=== PATIENT | male | born 1945 | race Caucasian/White ===

== ENCOUNTER 2017-10-10 07:42 | Emergency (ER) | payer MEDICARE, OTHER ==
[2017-10-10 08:02] VITALS: BP 151/80
--- NOTE | 2017-10-10 08:03 | EDM.PDOC ---
ED HPI GENERAL MEDICAL PROBLEM - General Chief Complaint: Bite:Animal, Insect Stated Complaint: INSECT STING Time Seen by Provider: 10/10/17 07:56 Source of Information: Reports: Patient History Limitations: Reports: No Limitations - History of Present Illness INITIAL COMMENTS - FREE TEXT/NARRATIVE: Patient comes in with complaints of swelling to his left hand/wrist after being stung by a wasp 2 days ago. During history taking he also states he poked his hand with a tool that he can't remember. He does have an open wound. He denies all other symptoms. No difficulty breathing or throat closing. Duration: Getting Worse Location: Reports: Upper Extremity, Right - Related Data Allergies Allergy/AdvReac Type Severity Reaction Status Date / Time clindamycin Allergy Rash Verified 10/10/17 08:05 NSAIDS (Non-Steroidal Allergy Facial Verified 10/10/17 08:05 Anti-Inflamma Swelling potassium clavulanate AdvReac Nausea and Verified 10/10/17 08:05 [From Augmentin] Vomiting seasonal Allergy Other Uncoded 02/10/16 20:48 Home Meds: Home Meds Esomeprazole [NexIUM] 40 mg PO DAILY 03/18/13 [History] Lisinopril [Prinivil] 20 mg PO DAILY 03/18/13 [History] ALPRAZolam [Xanax] 1 - 2 tab PO TID PRN 02/28/15 [History] Azelastine/Fluticasone [Dymista Nasal [place]] 2 spray NASBOTH BID PRN 02/28/15 [ History] Celecoxib [CeleBREX] 1 tab PO DAILY PRN 02/28/15 [History] Pantoprazole [Protonix] 1 tab PO BID 02/28/15 [History] Polyvinyl Alcohol/Povidone [Artificial Tears Drops] 1 drop EYEBOTH ASDIRECTED PRN 02/28/15 [History] Pravastatin [Pravachol] 20 mg PO DAILY 02/28/15 [History] Sucralfate [Carafate] 1 tab PO QID PRN 02/28/15 [History] Triamcinolone Acetonide [Kenalog 0.1% Oint] 1 applic TOP BID 02/28/15 [History] Vardenafil HCl [Levitra] 10 mg PO DAILY PRN 02/28/15 [History] traMADol HCl [Ultram] 1 tab PO Q6H PRN 02/28/15 [History] Past Medical History HEENT History: Reports: Sinusitis, Other (See Below) Other HEENT History: throat pain Cardiovascular History: Reports: High Cholesterol, Hypertension Respiratory History: Reports: None Gastrointestinal History: Reports: GERD, Other (See Below) Other Gastrointestinal History: abdominal pain, dyspepsia Genitourinary History: Reports: Other (See Below) Other Genitourinary History: ED Musculoskeletal History: Reports: Arthritis Other Musculoskeletal History: DJD, Shoulder Pain Neurological History: Reports: None Psychiatric History: Reports: Anxiety Oncologic (Cancer) History: Reports: Basal Cell Carcinoma, Prostate Dermatologic History: Reports: Melanoma, Other (See Below) Other Dermatologic History: basal cell ca - Past Surgical History Musculoskeletal Surgical History: Reports: Arthroscopic Procedure, Carpal Tunnel , Shoulder Surgery ED ROS ALLERGIC REACTION - Review of Systems Review Of Systems: See Below Constitutional: Reports: No Symptoms HEENT: Reports: No Symptoms Respiratory: Reports: No Symptoms Cardiovascular: Reports: No Symptoms Endocrine: Reports: No Symptoms GI/Abdominal: Reports: No Symptoms : Reports: No Symptoms Musculoskeletal: Reports: Hand Pain Skin: Reports: Wound Neurological: Reports: No Symptoms Psychiatric: Reports: No Symptoms Hematologic/Lymphatic: Reports: No Symptoms Immunologic: Reports: No Symptoms ED EXAM GENERAL NO PERIP PULSE - Physical Exam Exam: See Below Exam Limited By: No Limitations General Appearance: Alert, WD/WN, No Apparent Distress Respiratory/Chest: No Respiratory Distress, Lungs Clear, Normal Breath Sounds, No Accessory Muscle Use, Chest Non-Tender Cardiovascular: Normal Peripheral Pulses, Regular Rate, Rhythm, No Edema, No Gallop, No JVD, No Murmur, No Rub Skin Exam: Warm, Dry, Normal Color, No Rash, Wound/Incision (puncture wound to the proximal thumb near radial artery. ) Lymphatic: No Adenopathy Course - Re-Assessments/Exams Free Text/Narrative Re-Assessment/Exam: 10/10/17 08:58 x-ray negative for foreign body. swelling is most likely from the sting. Advised to go to the clinic however if the swelling and redness does not improve. Departure - Departure Time of Disposition: 08:55 Disposition: Home, Self-Care 01 Condition: Good Clinical Impression: Bee sting reaction - Discharge Information *PRESCRIPTION DRUG MONITORING PROGRAM REVIEWED*: Not Applicable *COPY OF PRESCRIPTION DRUG MONITORING REPORT IN PATIENT LUL: Not Applicable Instructions: Bee, Wasp, or Hornet Sting, Adult Forms: ED Department Discharge Additional Instructions: Take 25-50 mg of benadryl up to 4 times per day for the next several days. Stay well hydrated. Your hand did not have any foreign bodies seen on x-ray. If you do not get better over the next several days, follow up with your primary doctor for further management. Please call the hospital if you have any further questions or concerns. - Problem List & Annotations (1) Bee sting reaction SNOMED Code(s): 342555304 Code(s): T63.441A - TOXIC EFFECT OF VENOM OF BEES, ACCIDENTAL, INIT Status : Acute Priority: Low Current Visit: Yes Qualifiers: Encounter type: initial encounter Injury intent: accidental or unintentional Qualified Code(s): T63.441A - Toxic effect of venom of bees, accidental (unintentional), initial encounter - Problem List Review Problem List Initiated/Reviewed/Updated: Yes - Assessment/Plan Assessment:: bee sting Plan: Take 25-50 mg of benadryl up to 4 times per day for the next several days. Stay well hydrated. Your hand did not have any foreign bodies seen on x-ray. If you do not get better over the next several days, follow up with your primary doctor for further management. Please call the hospital if you have any further questions or concerns.
[2017-10-10] MEDS ORDERED: diphenhydrAMINE 25 MG Cap PO ONE (08:49)
[2017-10-10] MEDS ORDERED: predniSONE 20 MG Tab PO ONE (08:50)
== END 2017-10-10 09:02 | disposition home or self-care (01) ==
LOC: VM.ED 07:42
DX: T63.441A Toxic effect of venom of bees, accidental (unintentional), initial encounter (principal); S61.039A Puncture wound without foreign body of unspecified thumb without damage to nail, initial encounter; M79.89 Other specified soft tissue disorders; I10 Essential (primary) hypertension; E78.00 Pure hypercholesterolemia, unspecified; K21.9 Gastro-esophageal reflux disease without esophagitis; Z88.1 Allergy status to other antibiotic agents; Z79.899 Other long term (current) drug therapy; W26.8XXA Contact with other sharp object(s), not elsewhere classified, initial encounter
CPT/HCPCS: 73120; 99283; A9270

== ENCOUNTER 2019-07-11 14:59 | Emergency (ER) | payer MEDICARE, OTHER ==
[2019-07-11] MEDS ORDERED: Sodium Chloride 0.9% 10 ML Syringe FLUSH PRN (15:13)
[2019-07-11] MEDS: Aspirin 81 MG Tab.Chew PO ONE ×2 (15:23→15:25)
--- NOTE | 2019-07-11 15:23 | EDM.PDOC ---
ED HPI GENERAL MEDICAL PROBLEM - General Stated Complaint: SOB, CHEST PAIN Time Seen by Provider: 07/11/19 14:59 Source of Information: Reports: Patient History Limitations: Reports: No Limitations - History of Present Illness INITIAL COMMENTS - FREE TEXT/NARRATIVE: Pt. presents to ER with complaints of chest heaviness and shortness of breath. Pt. states that he has been experiencing these symptoms for approx. 1 month. He denies any radiation into the jaw, arms, neck or back. Denies any cough. No chest congestion. No fever or chills. No nausea, vomiting, or diarrhea. Pt. has a history of hypertension and is currently takinglisinopril 20mg once daily. He states that he has had issues with anxiety in the past and feels that possibly it may be related to that. He had a cardiolyte in 2014 which was normal. EKG in 2017 was within normal limits as well. Location: Reports: Chest, Generalized Mid-Sternal Chest Pain Score (Numeric/FACES): 5 - Related Data Allergies Allergy/AdvReac Type Severity Reaction Status Date / Time clindamycin Allergy Rash Verified 07/11/19 15:57 NSAIDS (Non-Steroidal Allergy Facial Verified 07/11/19 15:57 Anti-Inflamma Swelling potassium clavulanate AdvReac Nausea and Verified 07/11/19 15:57 [From Augmentin] Vomiting seasonal Allergy Other Uncoded 02/10/16 20:48 Home Meds: Home Meds Esomeprazole [NexIUM] 40 mg PO DAILY 03/18/13 [History] lisinopriL [Prinivil] 20 mg PO DAILY 03/18/13 [History] ALPRAZolam [Xanax] 1 - 2 tab PO DAILY PRN 02/28/15 [History] Azelastine/Fluticasone [Dymista Nasal [place]] 2 spray NASBOTH DAILY PRN 02/28/15 [History] Triamcinolone Acetonide [Kenalog 0.1% Oint] 1 applic TOP BID 02/28/15 [History] traMADol HCl [Ultram] 1 tab PO Q6H PRN 02/28/15 [History] Budesonide [Pulmicort] 0.5 mg [place] DAILY 07/11/19 [History] Celecoxib [CeleBREX] 200 mg PO DAILY 07/11/19 [History] Clobetasol [Clobetasol Propionate 0.05%] 1 gm TOP BID 07/11/19 [History] Ezetimibe [Zetia] 10 mg PO DAILY 07/11/19 [History] Fluocinonide [Lidex 0.05% Top Soln] 5 ml TOP BID PRN 07/11/19 [History] Hydrocortisone [Hydrocortisone 2.5% Crm] 1 dose TP BID 07/11/19 [History] Sildenafil [Viagra] 50 mg PO BEDTIME PRN 07/11/19 [History] fluocinolone acetonide oiL [Dermotic] 4 drop EARLF BID PRN 07/11/19 [History] predniSONE [Prednisone] 1 mg PO DAILY 07/11/19 [History] Past Medical History HEENT History: Reports: Sinusitis, Other (See Below) Other HEENT History: throat pain Cardiovascular History: Reports: High Cholesterol, Hypertension Respiratory History: Reports: None Gastrointestinal History: Reports: GERD, Other (See Below) Other Gastrointestinal History: abdominal pain, dyspepsia Genitourinary History: Reports: Other (See Below) Other Genitourinary History: ED Musculoskeletal History: Reports: Arthritis Other Musculoskeletal History: DJD, Shoulder Pain Neurological History: Reports: None Psychiatric History: Reports: Anxiety Oncologic (Cancer) History: Reports: Basal Cell Carcinoma, Prostate Dermatologic History: Reports: Melanoma, Other (See Below) Other Dermatologic History: basal cell ca - Past Surgical History Musculoskeletal Surgical History: Reports: Arthroscopic Procedure, Carpal Tunnel , Shoulder Surgery ED ROS GENERAL - Review of Systems Review Of Systems: See Below Constitutional: Reports: No Symptoms HEENT: Reports: No Symptoms Respiratory: Reports: Shortness of Breath Cardiovascular: Reports: Chest Pain, Blood Pressure Problem Endocrine: Reports: No Symptoms GI/Abdominal: Reports: No Symptoms : Reports: No Symptoms Musculoskeletal: Reports: No Symptoms Skin: Reports: No Symptoms Neurological: Reports: No Symptoms Psychiatric: Reports: No Symptoms Hematologic/Lymphatic: Reports: No Symptoms Immunologic: Reports: No Symptoms ED EXAM, GENERAL - Physical Exam Exam: See Below Exam Limited By: No Limitations General Appearance: Alert, WD/WN, No Apparent Distress Nose: Normal Inspection, Normal Mucosa, No Blood Throat/Mouth: Normal Inspection, Normal Lips, Normal Teeth, Normal Gums, Normal Oropharynx, Normal Voice, No Airway Compromise Head: Atraumatic, Normocephalic Neck: Normal Inspection, Supple, Non-Tender, Full Range of Motion Respiratory/Chest: No Respiratory Distress, Lungs Clear, Normal Breath Sounds, No Accessory Muscle Use, Chest Non-Tender Cardiovascular: Normal Peripheral Pulses, Regular Rate, Rhythm, No Edema, No Gallop, No JVD, No Murmur, No Rub GI/Abdominal: Normal Bowel Sounds, Soft, Non-Tender, No Organomegaly, No Distention, No Mass, Pelvis Stable (Male) Exam: Deferred Rectal (Males) Exam: Deferred Back Exam: Normal Inspection, Full Range of Motion Extremities: Normal Inspection, Normal Range of Motion, Non-Tender, No Pedal Edema, Normal Capillary Refill Neurological: Alert, Oriented, CN II-XII Intact, Normal Cognition, Normal Gait, Normal Reflexes, No Motor/Sensory Deficits Psychiatric: Normal Affect, Normal Mood Skin Exam: Warm, Dry, Intact, Normal Color, No Rash Lymphatic: No Adenopathy EKG INTERPRETATION Rhythm: NSR [place]: Normal P-Wave: Present QRS: Normal ST-T: Normal QT: Normal Course - Vital Signs Last Recorded V/S: Last Vital Signs Temp 37.4 C 07/11/19 15:05 Pulse 75 07/11/19 16:30 Resp 16 07/11/19 16:30 BP 154/90 H 07/11/19 16:30 Pulse Ox 95 07/11/19 16:30 - Orders/Labs/Meds Orders: Active Orders 24 hr Category Date Time Status EKG Documentation Completion [RC] STAT Care 07/11/19 15:14 Active Nitroglycerin [Nitrostat] Med 07/11/19 15:34 Active 0.4 mg SL Q5M PRN Sodium Chloride 0.9% [Saline Flush] Med 07/11/19 15:13 Active 10 ml FLUSH ASDIRECTED PRN Blood Culture x2 Reflex Set [OM.PC] Stat Oth 07/11/19 15:14 Ordered Peripheral IV Insertion Adult [OM.PC] Routine Oth 07/11/19 15:14 Ordered Medication Orders Nitroglycerin (Nitrostat) 0.4 mg SL Q5M PRN PRN Reason: Chest Pain Stop: 07/12/19 15:34 Last Admin: 07/11/19 15:25 Dose: 0.4 mg Sodium Chloride (Saline Flush) 10 ml FLUSH ASDIRECTED PRN PRN Reason: Keep Vein Open Labs: Laboratory Tests 07/11/19 07/11/19 07/11/19 Range/Units 15:17 15:17 15:17 WBC 8.1 (4.0-10.0) x10^3/uL RBC 5.02 (4.5-6.0) x10^6/uL Hgb 15.5 (14.0-18.0) g/dL Hct 43.6 (40.0-52.0) % MCV 86.9 (78.0-93.0) fL MCH 30.9 (26.0-32.0) pg MCHC 35.6 (32.0-36.0) g/dL RDW Coeff of Michelle 13.2 (10.0-15.0) % Plt Count 176 (130-400) x10^3/uL Neut % (Auto) 73.9 (50.0-80.0) % Lymph % (Auto) 19.0 L (25.0-50.0) % [place] % (Auto) 6.0 (2.0-11.0) % Eos % (Auto) 0.7 (0.0-4.0) % Baso % (Auto) 0.4 (0.2-1.2) % PT 10.7 (10.0-12.8) SEC INR 0.9 L (2.0-3.5) D-Dimer, Quantitative (<=0.58) mg/LFEU Sodium 143 (136-145) mmol/L Potassium 3.9 (3.5-5.1) mmol/L Chloride 106 (98-107) mmol/L Carbon Dioxide 22 (21-32) mmol/L Anion Gap 18.9 (10-20) mmol/L BUN 14 (7-18) mg/dL Creatinine 1.3 (0.70-1.30) mg/dL Est Cr Clr Drug Dosing TNP Estimated GFR (MDRD) 54 Glucose 127 H (74-106) mg/dL Calcium 8.7 (8.5-10.1) mg/dL Corrected Calcium 8.62 (8.5-10.1) mg/dL Magnesium 1.8 (1.8-2.4) mg/dL Total Bilirubin 0.9 (0.2-1.0) mg/dL AST 25 (15-37) U/L ALT 28 (16-63) U/L Alkaline Phosphatase 61 (46-116) U/L Troponin I < 0.017 (<=0.056) ng/mL C-Reactive Protein < 0.2 (<=0.9) mg/dL NT-Pro-B Natriuret Pep 60 (<=125) pg/mL Total Protein 7.1 (6.4-8.2) g/dL Albumin 4.1 (3.4-5.0) g/dL Globulin 3.0 Albumin/Globulin Ratio 1.37 TSH, Ultra Sensitive 0.874 (0.358-3.74) uIU/mL Urine Color (YELLOW) Urine Appearance (CLEAR) Urine pH (5.0-8.0) Ur Specific [place] Urine Protein (NEGATIVE) mg/dL Urine Glucose (UA) (NEGATIVE) mg/dL Urine Ketones (NEGATIVE) mg/dL Urine Occult Blood (NEGATIVE) Urine Nitrite (NEGATIVE) Urine Bilirubin (NEGATIVE) Urine Urobilinogen (0.2) EU/dL Ur Leukocyte Esterase (NEGATIVE) Urine RBC (NOT SEEN) /HPF Urine WBC (NOT SEEN) /HPF Ur Squamous Epith Cells (NEGATIVE) /HPF Urine Bacteria (NEGATIVE) /HPF Urine Mucus (NEGATIVE) /LPF 07/11/19 07/11/19 Range/Units 15:17 15:43 WBC (4.0-10.0) x10^3/uL RBC (4.5-6.0) x10^6/uL Hgb (14.0-18.0) g/dL Hct (40.0-52.0) % MCV (78.0-93.0) fL MCH (26.0-32.0) pg MCHC (32.0-36.0) g/dL RDW Coeff of Michelle (10.0-15.0) % Plt Count (130-400) x10^3/uL Neut % (Auto) (50.0-80.0) % Lymph % (Auto) (25.0-50.0) % [place] % (Auto) (2.0-11.0) % Eos % (Auto) (0.0-4.0) % Baso % (Auto) (0.2-1.2) % PT (10.0-12.8) SEC INR (2.0-3.5) D-Dimer, Quantitative 0.67 H (<=0.58) mg/LFEU Sodium (136-145) mmol/L Potassium (3.5-5.1) mmol/L Chloride (98-107) mmol/L Carbon Dioxide (21-32) mmol/L Anion Gap (10-20) mmol/L BUN (7-18) mg/dL Creatinine (0.70-1.30) mg/dL Est Cr Clr Drug Dosing Estimated GFR (MDRD) Glucose (74-106) mg/dL Calcium (8.5-10.1) mg/dL Corrected Calcium (8.5-10.1) mg/dL Magnesium (1.8-2.4) mg/dL Total Bilirubin (0.2-1.0) mg/dL AST (15-37) U/L ALT (16-63) U/L Alkaline Phosphatase (46-116) U/L Troponin I (<=0.056) ng/mL C-Reactive Protein (<=0.9) mg/dL NT-Pro-B Natriuret Pep (<=125) pg/mL Total Protein (6.4-8.2) g/dL Albumin (3.4-5.0) g/dL Globulin Albumin/Globulin Ratio TSH, Ultra Sensitive (0.358-3.74) uIU/mL Urine Color Yellow (YELLOW) Urine Appearance Slightly cloudy H (CLEAR) Urine pH 5.0 (5.0-8.0) Ur Specific [place] >=1.030 Urine Protein Negative (NEGATIVE) mg/dL Urine Glucose (UA) Negative (NEGATIVE) mg/dL Urine Ketones 15 H (NEGATIVE) mg/dL Urine Occult Blood Trace-lysed H (NEGATIVE) Urine Nitrite Negative (NEGATIVE) Urine Bilirubin Negative (NEGATIVE) Urine Urobilinogen 0.2 (0.2) EU/dL Ur Leukocyte Esterase Negative (NEGATIVE) Urine RBC 0-5 (NOT SEEN) /HPF Urine WBC Not seen (NOT SEEN) /HPF Ur Squamous Epith Cells Rare (NEGATIVE) /HPF Urine Bacteria Rare (NEGATIVE) /HPF Urine Mucus Few H (NEGATIVE) /LPF Meds: Medications Generic Name Dose Route Start Last Admin Trade Name Freq PRN Reason Stop Dose Admin Nitroglycerin 0.4 mg 07/11/19 15:34 07/11/19 15:25 Nitrostat SL 07/12/19 15:34 0.4 mg Q5M PRN Administration Chest Pain Sodium Chloride 10 ml 07/11/19 15:13 Saline Flush FLUSH ASDIRECTED PRN Keep Vein Open Discontinued Medications Generic Name Dose Route Start Last Admin Trade Name Chelsey PRN Reason Stop Dose Admin Aspirin 324 mg 07/11/19 15:17 07/11/19 15:25 Aspirin PO 07/11/19 15:18 Not Given ONETIME ONE Iopamidol 100 ml 07/11/19 16:25 07/11/19 16:40 Isovue-300 (61%) IVPUSH 07/11/19 16:26 100 ml ONETIME ONE Administration Lorazepam 1 mg 07/11/19 15:38 07/11/19 15:45 Ativan IVPUSH 07/11/19 15:39 1 mg STAT ONE Administration Lorazepam 1 packet 07/11/19 17:36 Take Home: Lorazepam 0.5 Mg, 2 Tab Pack PO 07/11/19 17:37 ONETIME ONE - Radiology Interpretation Free Text/Narrative:: chest x-ray is negative CTA of chest negative for PE, no obvious edema, infiltrate or other pathology other than some thickening of the bronchial wall. Departure - Departure Time of Disposition: 17:44 Disposition: Home, Self-Care 01 Clinical Impression: Atypical chest pain - Discharge Information Instructions: Generalized Anxiety Disorder, Adult, Nonspecific Chest Pain, Adult, [id number], Lorazepam tablets Referrals: Miguelito Tan MD [Primary Care Provider] - Forms: ED Department Discharge Additional Instructions: Ativan 0.5mg 1 tab 3 times daily as needed for anxiety Follow-up with Dr. Tan next week for follow-up and to set up a stress test. Check your BP as directed Return to ER if worsening discomfort. Sepsis Event Note - Focused Exam Vital Signs: Vital Signs Temp Pulse Resp BP BP Pulse Ox 07/11/19 16:30 75 16 154/90 H 95 07/11/19 15:29 109 H 16 143/82 H 96 07/11/19 15:25 159/95 H 07/11/19 15:15 94 16 152/98 H 94 L 07/11/19 15:05 37.4 C 92 18 177/100 H 95 Date Exam was Performed: 07/11/19 Time Exam was Performed: 17:42 - Problem List Review Problem List Initiated/Reviewed/Updated: Yes - My Orders Last 24 Hours: My Active Orders 07/11/19 15:13 Sodium Chloride 0.9% [Saline Flush] 10 ml FLUSH ASDIRECTED PRN 07/11/19 15:14 EKG Documentation Completion [RC] STAT Blood Culture x2 Reflex Set [OM.PC] Stat Peripheral IV Insertion Adult [OM.PC] Routine 07/11/19 15:34 Nitroglycerin [Nitrostat] 0.4 mg SL Q5M PRN - Assessment/Plan Last 24 Hours: My Active Orders 07/11/19 15:13 Sodium Chloride 0.9% [Saline Flush] 10 ml FLUSH ASDIRECTED PRN 07/11/19 15:14 EKG Documentation Completion [RC] STAT Blood Culture x2 Reflex Set [OM.PC] Stat Peripheral IV Insertion Adult [OM.PC] Routine 07/11/19 15:34 Nitroglycerin [Nitrostat] 0.4 mg SL Q5M PRN Plan: Chest pressure resolved with ativan. Pt. will be discharged home. I would like him to follow-up with his PCP regarding his symptoms. He should have a stress test sometime in the near future. I did start him on a small dose of ativan as needed for anxiety. All questions were answered.
[2019-07-11] MEDS ORDERED: Nitroglycerin 0.4 MG Tab.SL SL PRN (15:34)
[2019-07-11] MEDS ORDERED: LORazepam 2 MG/ML SDV IVPUSH ONE (15:38)
--- NOTE | 2019-07-11 15:41 | CR ---
[id number] RAD/RAD Chest PA or AP 1V EXAM: FRONTAL CHEST INDICATION: Chest pain and shortness of breath. COMPARISON: June 28, 2014. DISCUSSION: Stable mild elevation of the right hemidiaphragm. The lungs are clear. The heart is normal in size. IMPRESSION: 1. Negative exam. Timmy Giles MD 07/11/19 [id number] Thank you for allowing us to participate in the care of your patient.
[2019-07-11 15:56] LABS: CHLORIDE,CL 106 mmol/L (98-107); SODIUM,NA 143 mmol/L (136-145)
[2019-07-11 16:00] LABS: ANION GAP 18.9 mmol/L (10-20)
[2019-07-11] MEDS ORDERED: Iopamidol 612 MG/ML 100 ML Bottle IVPUSH ONE (16:25)
--- NOTE | 2019-07-11 17:21 | CT ---
[id number] CT/CTA Chest EXAM: CT ANGIOGRAM CHEST INDICATION: Shortness of breath and elevated d-dimer. COMPARISON: Chest radiograph same date. DISCUSSION: The pulmonary arteries are normal in appearance with no emboli identified. Mild bronchial wall thickening is compatible with underlying bronchitis. Mild linear scarring or subsegmental atelectasis in the right lower lobe. No acute infiltrates. No pleural or pericardial effusion. Normal heart size. 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 The osseous structures are unremarkable. IMPRESSION: 1. Negative for pulmonary embolism. 2. Mild diffuse bronchial wall thickening is compatible with bronchitis. Timmy Giles MD 07/11/19 0962 Thank you for allowing us to participate in the care of your patient.
[2019-07-11] MEDS ORDERED: Take Home: LORazepam 0.5 MG Tab, 2 Tab Pack PO ONE (17:36)
[2019-07-11 17:43] VITALS: BP 130/75; PULSE 72
== END 2019-07-11 17:50 | disposition home or self-care (01) ==
LOC: VM.ED 14:59
DX: R07.89 Other chest pain (principal); E78.00 Pure hypercholesterolemia, unspecified; I10 Essential (primary) hypertension; K21.9 Gastro-esophageal reflux disease without esophagitis; M19.90 Unspecified osteoarthritis, unspecified site; F41.9 Anxiety disorder, unspecified; Z88.1 Allergy status to other antibiotic agents; Z91.018 Allergy to other foods; Z79.899 Other long term (current) drug therapy
CPT/HCPCS: 71045; 71275; 80053; 81001; 83735; 83880; 84443; 84484; 85025; 85379; 85610; 86140; 93005; 93010; 96374; 99284-GF; 99285-25; A9270-GY; J2060; Q9967

== ENCOUNTER 2020-03-07 08:21 | Day surgery (SDC) | payer MEDICARE, OTHER ==
[~2020-03-07 08:21] MED LIST: Lactated Ringers 1,000 ML IV SCH
[2020-03-07] MEDS ORDERED: Lidocaine 4% 5 ML Amp ONE (09:06)
[2020-03-07] MEDS ORDERED: fentaNYL 100 MCG/2 ML SDV ONE (10:00)
[2020-03-07] MEDS ORDERED: Propofol 200 MG/20 ML SDV ONE (10:30)
[2020-03-07 11:07] VITALS: BP 162/83; PULSE 54
--- NOTE | 2020-03-07 12:29 | OR ---
PREOPERATIVE DIAGNOSIS: Gastroesophageal reflux disease. POSTOPERATIVE DIAGNOSIS: Gastroesophageal reflux disease. PROCEDURE PERFORMED: Esophagogastroduodenoscopy with biopsies. ANESTHESIA: MAC anesthesia. COMPLICATIONS: None apparent. BLOOD LOSS: Minimal. FINDINGS: 1. There was mild antritis. 2. The duodenum was examined up to the second portion and was unremarkable. 3. No significant hiatal hernia. 4. No esophagitis. 5. Nothing concerning for Harris's esophagus. INDICATION FOR PROCEDURE: Mr. Andrews is a 74-year-old male who has for many years been on Nexium. He has well-controlled reflux symptoms while on this, but does still have a little bit of persistent burning in the epigastrium. He has previously considered anti-reflux surgery when his GERD was worse, but opted to treat his symptoms with medication. Currently, he is not interested in anti- reflux surgery, but rather just to ensure that nothing more serious is going on in his stomach. DETAILS OF PROCEDURE: After informed consent was obtained, the patient was brought to the operating room, placed in left lateral decubitus position. MAC anesthesia was induced by Anesthesia colleagues. A bite block was placed. The endoscope was introduced into the patient's mouth through the upper esophageal sphincter down the esophagus into the stomach. The pylorus was intubated. The duodenum was examined up to the second portion. Now, the stomach was then examined and a retroflexed view was obtained. We did take some gastric biopsies in the antrum, greater curve or lesser curve for H. pylori. No findings were noted except for what is mentioned in the above findings section. The stomach was desufflated and the endoscope was then withdrawn. PATHOLOGY: A) Stomach, antrum Fragments of antral mucosa with patchy mild chronic gastritis Fragments of fundic mucosa with no diagnostic abnormalities Negative for Helicobacter pylori RECOMMENDATIONS: Continue antiacid medications. Should he change his mind about antireflux surgery a surgical referral could be placed for further discussion. RKM: 03/07/2020 10:55:47 MODL: 03/07/2020 11:29:54 /[id number] RACHEL
--- NOTE | 2020-03-07 12:30 | OR ---
PREOPERATIVE DIAGNOSES: 1. Screening colonoscopy. 2. History of colon polyps. 3. Family history of colon cancer in his mother. POSTOPERATIVE DIAGNOSES: 1. Screening colonoscopy. 2. History of colon polyps. 3. Family history of colon cancer in his mother. PROCEDURE PERFORMED: Total flexible colonoscopy. ANESTHESIA: MAC anesthesia. COMPLICATIONS: None apparent. BLOOD LOSS: Minimal. FINDINGS: Sigmoid colon polyp, 3 mm, cold forceps. This did appear more like a hyperplastic polyp that was removed due to family history of cancer. START TIME: 1030. CECUM TIME: 1034. STOP TIME: 1048. BOWEL PREP: [place] class 2. INDICATIONS FOR PROCEDURE: Mr. Andrews is a 74-year-old male who is here for a screening colonoscopy. He reports a history of colon polyps as well as a colorectal cancer in his mother. He said his last colonoscopy was 5 years ago. He gets them about every 5 years. He denies bloody or dark black stools. DETAILS OF PROCEDURE: After informed consent was obtained, the patient was brought to the procedure room, placed in left lateral decubitus position. MAC anesthesia was induced by Anesthesia colleagues. The colonoscope was introduced into the rectum and advanced all the way to the cecum. The appendiceal orifice was photographed. The terminal ileum was intubated and photographed. The colonoscope was then slowly withdrawn. No pathology was identified except for what is mentioned above in the findings section. A retroflexed view was obtained. The patient tolerated the procedure well and was awoken from anesthesia by Anesthesia colleagues without incident. PATHOLOGY: B) Colon, sigmoid polyp Polypoid colonic mucosa with mild surface hyperplasia RECOMMENDATIONS: Recommended repeat screening colonoscopy in 5 years. RKM: 03/07/2020 10:58:17 MODL: 03/07/2020 11:15:32 /[id number] RACHEL
--- NOTE | 2020-03-18 14:37 | LETTER ---
03/18/2020 RE: PACO ANDREWS : 1945 Paco Andrews [address] [place] [id number] Dear Mr. Andrews: I am writing to inform you of the pathology from your recent upper endoscopy and colonoscopy. Regarding your upper endoscopy, we found some mild inflammation, but no other concerning findings. I recommend that you continue utilizing your antiacid medication. Should you change your mind about antireflux surgery, this certainly could be considered. This would be up to you and you can discuss a surgical referral with your primary care provider if you should desire one. Regarding your colonoscopy, you had 1 hyperplastic polyp. The hyperplastic polyp is completely benign and is not considered precancerous. Given your family history of colon cancer, I recommend you get a repeat colonoscopy in 5 years. Warmest regards,
== END 2020-03-07 11:40 | disposition home or self-care (01) ==
LOC: VM.SDS 08:21
PROVIDERS: ATTEND Student in an Organized Health Care Education/Training Program
DX: Z12.11 Encounter for screening for malignant neoplasm of colon (principal); K63.89 Other specified diseases of intestine; K21.9 Gastro-esophageal reflux disease without esophagitis; K29.50 Unspecified chronic gastritis without bleeding; K63.5 Polyp of colon; F41.9 Anxiety disorder, unspecified; F32.9 Major depressive disorder, single episode, unspecified; E78.5 Hyperlipidemia, unspecified; I10 Essential (primary) hypertension; Z98.890 Other specified postprocedural states; Z80.0 Family history of malignant neoplasm of digestive organs; Z88.8 Allergy status to other drugs, medicaments and biological substances; Z88.1 Allergy status to other antibiotic agents; Z01.812 Encounter for preprocedural laboratory examination; Z20.828 Contact with and (suspected) exposure to other viral communicable diseases
CPT/HCPCS: 00811; 88305; J2704; J3010; J7120; U0002

== ENCOUNTER 2021-03-13 00:14 | Emergency (ER) | payer MEDICARE, OTHER ==
--- NOTE | 2021-03-13 00:39 | EDM.PDOC ---
ED HPI GENERAL MEDICAL PROBLEM - General Chief Complaint: Neuro Symptoms/Deficits Stated Complaint: dizziness, resolved now Time Seen by Provider: 03/13/21 00:30 Source of Information: Reports: Patient, Family History Limitations: Reports: No Limitations - History of Present Illness INITIAL COMMENTS - FREE TEXT/NARRATIVE: States that he awakened with dizziness, also states he thinks he was dizzy while reading before falling asleep. He is having some difficulty explaining his symptoms, appears a bit anxious. Affect is somewhat odd, but states this is his norm. He does not appear to have any neuro deficits. He has meds for anxiety, but he did not take them. States that he saw a dying friend today and that has upset him. Onset: Unknown/Unsure Onset Date: 03/13/21 (unsure) Duration: Resolved Prior to Arrival Location: Reports: Other (denies pain) Associated Symptoms: Reports: No Other Symptoms Treatments NURSE OFFICE: Reports: Other (see below) (none, states he takes xanax and inderal prn for anxiety, but he did not take either today) - Related Data Allergies Allergy/AdvReac Type Severity Reaction Status Date / Time aspirin Allergy Facial Verified 03/07/20 08:46 Swelling clindamycin Allergy Rash Verified 03/07/20 08:46 ibuprofen Allergy Facial Verified 03/07/20 08:46 Swelling NSAIDS (Non-Steroidal Allergy Facial Verified 03/07/20 08:46 Anti-Inflamma Swelling potassium clavulanate AdvReac Nausea and Verified 03/07/20 08:46 [From Augmentin] Vomiting seasonal Allergy Other Uncoded 03/07/20 08:46 Home Meds: Home Meds Esomeprazole [NexIUM] 40 mg PO DAILY 03/18/13 [History] lisinopriL [Prinivil] 20 mg PO DAILY 03/18/13 [History] ALPRAZolam [Xanax] 1 - 2 tab PO DAILY PRN 02/28/15 [History] Triamcinolone Acetonide [Kenalog 0.1% Oint] 1 applic TOP BID 02/28/15 [History] traMADol HCl [Ultram] 1 tab PO Q6H PRN 02/28/15 [History] Budesonide [Pulmicort] 0.5 mg KALYANI DAILY 07/11/19 [History] Celecoxib [CeleBREX] 100 mg PO DAILY PRN 07/11/19 [History] Clobetasol [Clobetasol Propionate 0.05%] 1 gm TOP BID 07/11/19 [History] Ezetimibe [Zetia] 10 mg PO DAILY 07/11/19 [History] Fluocinonide [Lidex 0.05% Top Soln] 1 applic TOP BID PRN 07/11/19 [History] Hydrocortisone [Hydrocortisone 2.5% Crm] 1 dose TP BID 07/11/19 [History] Sildenafil [Viagra] 0.5 - 2 tab PO DAILY PRN 07/11/19 [History] fluocinolone acetonide oiL [Dermotic] 4 drop EARLF BID PRN 07/11/19 [History] Acetaminophen 500 mg PO BEDTIME PRN 12/27/19 [History] Escitalopram Oxalate [Lexapro] 10 mg PO DAILY 12/27/19 [History] Fluticasone Propionate [Flonase] 2 spray KALYANI DAILY 12/27/19 [History] Olopatadine [Pataday 0.2% Ophth Soln] 1 drop OP DAILY PRN 12/27/19 [History] Phenylephrine HCl [Sudafed PE] 10 mg PO BEDTIME PRN 12/27/19 [History] Propranolol [Inderal] 20 mg PO Q8H PRN 12/27/19 [History] Sucralfate [Carafate] 1 gm PO QID PRN 12/27/19 [History] diphenhydrAMINE HCL [Benadryl] 25 mg PO BEDTIME PRN 12/27/19 [History] Past Medical History HEENT History: Reports: Sinusitis Other HEENT History: eczematoid otitis externa Cardiovascular History: Reports: High Cholesterol, Hypertension Other Cardiovascular History: agatston CAC score <100 Respiratory History: Reports: None Gastrointestinal History: Reports: Gastritis, GERD Other Gastrointestinal History: reflux esophagitis. lower abdomen pain Genitourinary History: Reports: Other (See Below) Other Genitourinary History: ED. Hydocele. Nocturia Musculoskeletal History: Reports: Osteoarthritis Other Musculoskeletal History: DJD. Tendinosis. duputrens disease of palm - contracture. bilateral shoulder pain. left shoulder pain. impingement syndrome of shoulder. polymyalgia rheumatica Neurological History: Reports: None Other Neuro History: ulnar neuropathy Psychiatric History: Reports: Anxiety, Depression Oncologic (Cancer) History: Reports: Basal Cell Carcinoma, Prostate Dermatologic History: Reports: Seborrheic Dermatitis Other Dermatologic History: hypertrophic & atrophic condition of the skin. itching - Past Surgical History HEENT Surgical History: Reports: Adenoidectomy, Eye Surgery, Tonsillectomy Other HEENT Surgeries/Procedures: exc thyroglossal duct cyst sinus GI Surgical History: Reports: Colonoscopy, EGD Other Female Surgeries/Procedures: hydrocele spermatocele Male Surgical History: Reports: Prostatectomy Musculoskeletal Surgical History: Reports: Arthroscopic Procedure, Carpal Tunnel Dermatological Surgical History: Reports: Skin Biopsy Social & Family History - Caffeine Use Caffeine Use: Reports: Coffee ED ROS GENERAL - Review of Systems Review Of Systems: See Below Constitutional: Reports: No Symptoms HEENT: Reports: No Symptoms Respiratory: Reports: No Symptoms Cardiovascular: Reports: Blood Pressure Problem, Lightheadedness Endocrine: Reports: No Symptoms GI/Abdominal: Reports: No Symptoms : Reports: No Symptoms Musculoskeletal: Reports: No Symptoms Skin: Reports: No Symptoms Neurological: Reports: Dizziness Psychiatric: Reports: Anxiety Hematologic/Lymphatic: Reports: No Symptoms Immunologic: Reports: No Symptoms ED EXAM, NEURO - Physical Exam Exam: See Below Exam Limited By: No Limitations General Appearance: Alert, No Apparent Distress Eye Exam: Bilateral Eye: EOMI, Normal Inspection, PERRL Ears: Normal External Exam, Normal Canal, Other (some cerumen present) Nose: Normal Inspection, Normal Mucosa, No Blood Throat/Mouth: Normal Inspection, Normal Lips, Normal Gums, Normal Oropharynx, Normal Voice, No Airway Compromise Head Exam: Atraumatic, Normocephalic Neck: Normal Inspection, Supple, Non-Tender, Full Range of Motion Respiratory/Chest: No Respiratory Distress, Lungs Clear, Normal Breath Sounds, Chest Non-Tender Cardiovascular: Normal Peripheral Pulses, Other (irregular, ekg shows SR with PACs) GI/Abdominal: Normal Bowel Sounds, Soft, Non-Tender, No Distention Neurological: Alert, Normal Gait Back Exam: Normal Inspection, Full Range of Motion Extremities: Normal Inspection, Normal Range of Motion, No Pedal Edema, Normal Capillary Refill Psychiatric: Normal Mood, Anxious, Other (somewhat odd affect, states is his norm) Skin Exam: Warm, Dry, Intact, Normal Color #1 Interpretation EKG Date: 03/13/21 Rhythm: Other (SR with PACs) Course - Vital Signs Last Recorded V/S: Last Vital Signs Temp 96.8 F L 03/13/21 00:15 Pulse 61 03/13/21 02:38 Resp 16 03/13/21 00:15 BP 143/78 H 03/13/21 02:38 Pulse Ox 97 03/13/21 00:15 - Orders/Labs/Meds Orders: Active Orders 24 hr Category Date Time Status Head wo Cont [CT] Stat Exams 03/13/21 01:41 Ordered Sodium Chloride 0.9% [Saline Flush] Med 03/13/21 00:58 Active 10 ml FLUSH ASDIRECTED PRN Saline Lock Insert [OM.PC] Routine Oth 03/13/21 00:58 Ordered Medication Orders Sodium Chloride (Sodium Chloride 0.9% 10 Ml Syringe) 10 ml FLUSH ASDIRECTED PRN PRN Reason: Keep Vein Open Labs: Laboratory Tests 03/13/21 03/13/21 Range/Units 00:36 00:36 WBC 7.3 (4.0-10.0) x10^3/uL RBC 4.92 (4.5-6.0) x10^6/uL Hgb 15.2 (14.0-18.0) g/dL Hct 43.1 (40.0-52.0) % MCV 87.6 (78.0-93.0) fL MCH 30.9 (26.0-32.0) pg MCHC 35.3 (32.0-36.0) g/dL RDW Coeff of Michelle 13.2 (10.0-15.0) % Plt Count 177 (130-400) x10^3/uL Immature Gran % (Auto) 0.30 (0.00-0.43) % Neut % (Auto) 37.9 L (50.0-80.0) % Lymph % (Auto) 48.3 (25.0-50.0) % Hart % (Auto) 8.1 (2.0-11.0) % Eos % (Auto) 5.0 H (0.0-4.0) % Baso % (Auto) 0.4 (0.2-1.2) % Neut # (Auto) 2.8 (1.8-7.7) x10^3/uL Lymph # (Auto) 3.5 (1.0-4.8) x10^3/uL Hart # (Auto) 0.6 (0.0-0.8) x10^3/uL Eos # (Auto) 0.4 (0.0-0.5) x10^3/uL Baso # (Auto) 0.0 (0.0-0.2) x10^3/uL Immature Gran # (Auto) 0.02 (0.00-0.07) x10^3/uL Sodium 142 (136-145) mmol/L Potassium 3.6 (3.5-5.1) mmol/L Chloride 104 (98-107) mmol/L Carbon Dioxide 28 (21-32) mmol/L Anion Gap 13.6 (5-15) mmol/L BUN 18 (7-18) mg/dL Creatinine 1.4 H (0.70-1.30) mg/dL Est Cr Clr Drug Dosing 50.04 mL/min Estimated GFR (MDRD) 49 Glucose 139 H (70-99) mg/dL Calcium 8.5 (8.5-10.1) mg/dL Corrected Calcium 8.7 (8.5-10.1) mg/dL Magnesium 2.1 (1.8-2.4) mg/dL Total Bilirubin 0.5 (0.2-1.0) mg/dL AST 17 (15-37) U/L ALT 26 (16-63) U/L Alkaline Phosphatase 60 (46-116) U/L Troponin I High Sens 6 (<=76) ng/L Total Protein 7.0 (6.4-8.2) g/dL Albumin 3.7 (3.4-5.0) g/dL Globulin 3.3 Albumin/Globulin Ratio 1.12 Meds: Medications Generic Name Dose Route Start Last Admin Trade Name Freq PRN Reason Stop Dose Admin Sodium Chloride 10 ml 03/13/21 00:58 Sodium Chloride 0.9% 10 Ml Syringe FLUSH ASDIRECTED PRN Keep Vein Open Discontinued Medications Generic Name Dose Route Start Last Admin Trade Name Freq PRN Reason Stop Dose Admin Clonidine HCl 0.1 mg 03/13/21 00:56 03/13/21 01:02 Clonidine 0.1 Mg Tab PO 03/13/21 00:57 0.1 mg ONETIME ONE Administration Hydroxyzine HCl 25 mg 03/13/21 00:55 03/13/21 01:02 Hydroxyzine Hcl 25 Mg Tab PO 03/13/21 00:56 25 mg ONETIME ONE Administration - Radiology Interpretation CT Results Date: 03/13/21 - Re-Assessments/Exams Free Text/Narrative Re-Assessment/Exam: 03/13/21 01:42 BP improved, pt states still dizzy, but that he "forgot about it" for a while. Affect is more odd than before, is questioning about "shellie vu" and generally seems a bit worse than when he arrived. CT HEAD ordered. Free Text/Narrative Re-Assessment/Exam: 03/13/21 02:[address] results, but pt is much improved, calmer, coherent, states feels better. Free Text/Narrative Re-Assessment/Exam: 03/13/21 03:37 CT report shows no acute findings. Pt and state wanting to go home. States feeling much better. Departure - Departure Time of Disposition: 03:40 Disposition: Home, Self-Care 01 Condition: Good Clinical Impression: Anxiety Hypertension Qualifiers: Hypertension type: unspecified Qualified Code(s): I10 - Essential (primary) hypertension - Discharge Information Instructions: Managing Anxiety, Adult, Hypertension, Adult, Supporting Someone With Anxiety Referrals: PCP,None [Primary Care Provider] - Forms: ED Department Discharge Additional Instructions: Follow up with your Primary Care Provider regarding anxiety. Take your anxiety meds as ordered. Sepsis Event Note (ED) - Focused Exam Vital Signs: Vital Signs Temp Pulse Resp BP BP Pulse Ox 03/13/21 02:38 61 143/78 H 03/13/21 01:32 148/73 H 03/13/21 01:26 70 159/77 H 03/13/21 01:02 172/76 H 03/13/21 00:15 96.8 F L 67 16 163/81 H 97 - Problem List & Annotations (1) Anxiety SNOMED Code(s): 98274128 Code(s): F41.9 - ANXIETY DISORDER, UNSPECIFIED Status: Acute Current Visit: Yes (2) Hypertension SNOMED Code(s): 18995937 Code(s): I10 - ESSENTIAL (PRIMARY) HYPERTENSION Status: Acute Current Visit: Yes - Problem List Review Problem List Initiated/Reviewed/Updated: Yes - My Orders Last 24 Hours: My Active Orders 03/13/21 00:58 Sodium Chloride 0.9% [Saline Flush] 10 ml FLUSH ASDIRECTED PRN Saline Lock Insert [OM.PC] Routine 03/13/21 01:41 Head wo Cont [CT] Stat - Assessment/Plan Last 24 Hours: My Active Orders 03/13/21 00:58 Sodium Chloride 0.9% [Saline Flush] 10 ml FLUSH ASDIRECTED PRN Saline Lock Insert [OM.PC] Routine 03/13/21 01:41 Head wo Cont [CT] Stat
[2021-03-13] MEDS ORDERED: hydrOXYzine HCl 25 MG Tab PO ONE (00:55)
[2021-03-13] MEDS ORDERED: cloNIDine 0.1 MG Tab PO ONE (00:56)
[2021-03-13] MEDS ORDERED: Sodium Chloride 0.9% 10 ML Syringe FLUSH PRN (00:58)
[2021-03-13 01:08] LABS: ANION GAP 13.6 mmol/L (5-15)
[2021-03-13 02:46] VITALS: PULSE 61
[2021-03-13 04:04] VITALS: BP 144/76
--- NOTE | 2021-03-13 08:55 | CT ---
[id number] CT/CT Head WO IV EXAM: CT Head WO IV CLINICAL DATA: CHANGE IN MENTAL STATUS COMPARISON: No previous similar exam is available for comparison. FINDINGS: There is no mass or mass effect. There is no hemorrhage or hydrocephalus. There are no extra-axial fluid collections. There are no sites of abnormal attenuation. IMPRESSION: NO PLAIN CT EVIDENCE OF ACUTE INTRACRANIAL PROCESS. Miller Salinas MD 03/13/21 [id number] Thank you for allowing us to participate in the care of your patient.
== END 2021-03-13 03:50 | disposition home or self-care (01) ==
LOC: VM.ED 00:14
DX: F41.9 Anxiety disorder, unspecified (principal); E78.00 Pure hypercholesterolemia, unspecified; I10 Essential (primary) hypertension; K21.9 Gastro-esophageal reflux disease without esophagitis; Z88.1 Allergy status to other antibiotic agents; Z88.8 Allergy status to other drugs, medicaments and biological substances; Z88.0 Allergy status to penicillin; Z79.899 Other long term (current) drug therapy
CPT/HCPCS: 70450; 80053; 83735; 84484; 85025; 93005; 99284; A9270

== ENCOUNTER 2022-09-25 00:30 | Emergency (ER) | payer MEDICARE, OTHER ==
[2022-09-25 00:57] VITALS: BP 167/85; PULSE 66
[2022-09-25] MEDS: Lidocaine 1% 10 ML MDV INJECT ONE (01:06)
[2022-09-25] MEDS: Diphtheria,Pertussis(Acell),Tetanus Vaccine 0.5 ML Syringe IM ONE (01:12)
== END 2022-09-25 01:19 | disposition home or self-care (01) ==
LOC: VM.ED 00:30
DX: S01.81XA Laceration without foreign body of other part of head, initial encounter (principal); I10 Essential (primary) hypertension; K21.9 Gastro-esophageal reflux disease without esophagitis; Z88.8 Allergy status to other drugs, medicaments and biological substances; Z88.1 Allergy status to other antibiotic agents; Z88.6 Allergy status to analgesic agent; Z91.048 Other nonmedicinal substance allergy status; Z79.899 Other long term (current) drug therapy; Z23 Encounter for immunization; W22.8XXA Striking against or struck by other objects, initial encounter
CPT/HCPCS: 12011; 90471; 90715; 99282-25; 99283; J3490